=== PATIENT | female | born 1935 | race Caucasian/White ===

== ENCOUNTER → 2017-07-14 | Outpatient (CLI) | payer OTHER ==
[~2017-07-14] VITALS: Ht 157.5 cm; Wt 70.9 kg
[~2017-07-14] MED LIST: ADULT ASPIRIN81 MG PO; CALCIUM 500 +1 EAC4 PO; HYDROCHLOROTHIA25 MG PO; OCUVITE SOFTGE1 EACH PO; TYLENOL325 M2 PO; VITAMIN B122500 MCG PO; VITAMIN D2000 UNI1 PO
[2017-07-14 07:12] VITALS: BP 186/74
== END | disposition home or self-care (01) ==
LOC: IVINF 06:49
DX: D50.9 Iron deficiency anemia, unspecified (principal)
CPT/HCPCS: 96365; 96366; J1756; J7050